=== PATIENT | male | born 1990 | race Caucasian/White ===

== ENCOUNTER 2020-05-10 13:42 | Outpatient (CLI) | payer BC, SELFPAY ==
[2020-05-10 15:31] LABS: Liquefaction Semen Complete in 30 min. (<30 minutes); Semen Color Opaque (Grey-opaque); Semen Immotility 10 %; Semen Non-Progressive Motility 10 %; Semen Progressive Motility 80 % (>32); Semen Total Motility 90 (>40% (PM+NP)); Semen Viscosity Not Increased (Not Increa.)
[2020-05-10 15:32] LABS: Semen Morphology Result to Follow
[2020-05-10 15:34] LABS: Sperm Count 17 Mil/mL (60-150 million/mL)
[2020-05-19 22:23] LABS: Fructose, Semen 337 mg/dL (150-600)
== END 2020-05-10 13:43 | disposition home or self-care (01) ==
LOC: CHSLAB 13:47
PROVIDERS: PCP Nurse Practitioner; Visit Provider Nurse Practitioner
DX: N46.9 Male infertility, unspecified (principal)
CPT/HCPCS: 82757; 88160; 89320